=== PATIENT | female | born 1995 | race Caucasian/White ===

== ENCOUNTER 2016-12-17 20:10 | Emergency (ER) | payer BC ==
[~2016-12-17] VITALS: Ht 162.6 cm; Wt 87.7 kg
[~2016-12-17 20:10] MED LIST: PRENATAL 19 CH1 EACH PO; ZYRTEC 10MG10 MG PO
[2016-12-17 20:15] VITALS: TEMP 98.2
[2016-12-17] MEDS ORDERED: B-121000 MCG PO (20:17)
[2016-12-17] MEDS ORDERED: FOLIC ACID 11 MG/TA1 PO (20:17)
[2016-12-17] MEDS ORDERED: PRENATAL PO (20:17)
[2016-12-17 22:50] LABS: INFLUENZA B NEGATIVE
[2016-12-17 23:00] LABS: BASO % 0.3 % (0.0-2.0); EOS # 0.3 (0.0-0.7); EOS % 1.9 % (0-4.0); GRAN # 9.5 (1.4-6.5); GRAN % 71.7 % (42.2-75.2); HEMATOCRIT 41.2 % (35.0-45.0); HEMOGLOBIN 14.6 g/dl (12.0-15.0); LYMPH % 22.5 % (20.0-51.0); MEAN CELL VOLUME 83 fl (80.0-95.0); MEAN CORPUSCULAR HEMOGLOBIN 29 pg (26.0-32.0); MEAN CORPUSCULAR HGB CONC 35 g/dl (33.0-37.0); MEAN PLATELET VOLUME 9.5 fl (7.4-10.4); MONO # 0.4 (0.1-0.6); MONO % 3.2 % (1.7-9.3); PLATELET COUNT 266 K/mm3 (130-400); RED BLOOD COUNT 4.98 M/mm3 (4.10-5.30); REDCELL DISTRIBUTION WIDTH-CV 13.5 % (11.5-14.5); WHITE BLOOD COUNT 13.2 K/mm3 (4.8-10.8)
[2016-12-17 23:13] LABS: ADJUSTED CALCIUM 9.6 mg/dL (8.4-10.2); ALBUMIN 4.2 gm/dL (3.5-5.0); BILIRUBIN,TOTAL 0.7 mg/dL (0.0-1.0); CALCIUM 9.8 mg/dL (8.4-10.2); CREATININE, serum 0.67 mg/dL (0.52-1.25); POTASSIUM 3.6 mmol/L (3.4-5.0); TOTAL PROTEIN 7.7 gm/dL (6.4-8.2)
[2016-12-17 23:29] LABS: PH 5 (5-8); SQUAMOUS EPITHELIAL >50 /hpf; URINE APPEARANCE Cloudy; URINE BACTERIA Occasional /hpf; URINE BILIRUBIN Negative (NEGATIVE); URINE BLOOD Negative (NEGATIVE); URINE COLOR Amber; URINE GLUCOSE Negative (NEGATIVE); URINE KETONE Trace (NEGATIVE); URINE UROBILINOGEN Negative (NEGATIVE)
[2016-12-17 23:31] LABS: URINE RBC 0-2 /hpf
[2016-12-17] MEDS ORDERED: PHENERGAN 25 TA25 MG PO (23:31)
[2016-12-18 00:22] VITALS: BP 104/65; PULSE 102
== END 2016-12-18 00:22 | disposition home or self-care (01) ==
LOC: COL.ER 20:10
PROVIDERS: Nurse Practitioner
DX: O99.89 Other specified diseases and conditions complicating pregnancy, childbirth and the puerperium (principal); Z3A.14 14 weeks gestation of pregnancy; R11.2 Nausea with vomiting, unspecified; R09.89 Other specified symptoms and signs involving the circulatory and respiratory systems
CPT/HCPCS: J2550; J7030

== ENCOUNTER 2016-12-24 13:59 | Emergency (ER) | payer BC ==
[~2016-12-24] VITALS: Ht 162.6 cm; Wt 87.7 kg
[~2016-12-24 13:59] MED LIST changes: +B-121000 MCG PO; +FOLIC ACID 11 MG/TA1 PO; +PHENERGAN 25 TA25 MG PO; +PRENATAL PO
[2016-12-24 14:02] VITALS: TEMP 98.8
[2016-12-24] MEDS ORDERED: VITAMIN B-6100 MG (14:06)
[2016-12-24] MEDS ORDERED: UNISOM25 MG PO (14:07)
[2016-12-24 15:03] LABS: BASO % 0.2 % (0.0-2.0); EOS # 0.1 (0.0-0.7); EOS % 0.7 % (0-4.0); GRAN # 10.9 (1.4-6.5); GRAN % 91.7 % (42.2-75.2); HEMATOCRIT 41.3 % (35.0-45.0); HEMOGLOBIN 14.6 g/dl (12.0-15.0); LYMPH # 0.6 (1.2-3.4); LYMPH % 4.9 % (20.0-51.0); MEAN CELL VOLUME 83 fl (80.0-95.0); MEAN CORPUSCULAR HEMOGLOBIN 29 pg (26.0-32.0); MEAN CORPUSCULAR HGB CONC 35 g/dl (33.0-37.0); MONO # 0.3 (0.1-0.6); MONO % 2.1 % (1.7-9.3); PLATELET COUNT 232 K/mm3 (130-400); RED BLOOD COUNT 4.98 M/mm3 (4.10-5.30); REDCELL DISTRIBUTION WIDTH-CV 13.8 % (11.5-14.5); WHITE BLOOD COUNT 11.9 K/mm3 (4.8-10.8)
[2016-12-24 15:09] LABS: PH 9 (5-8); URINE APPEARANCE Hazy; URINE BACTERIA Rare /hpf; URINE BILIRUBIN Negative (NEGATIVE); URINE BLOOD Negative (NEGATIVE); URINE COLOR Yellow; URINE GLUCOSE Negative (NEGATIVE); URINE KETONE Trace (NEGATIVE); URINE UROBILINOGEN Negative (NEGATIVE)
[2016-12-24 15:17] LABS: ADJUSTED CALCIUM 9.5 mg/dL (8.4-10.2); ALBUMIN 4.1 gm/dL (3.5-5.0); BILIRUBIN,TOTAL 0.9 mg/dL (0.0-1.0); CALCIUM 9.6 mg/dL (8.4-10.2); CREATININE, serum 0.64 mg/dL (0.52-1.25); INFLUENZA B NEGATIVE; POTASSIUM 3.5 mmol/L (3.4-5.0); TOTAL PROTEIN 7.6 gm/dL (6.4-8.2)
[2016-12-24] MEDS ORDERED: REGLAN 10MG10 MG/TAB PO (15:38)
[2016-12-24 16:22] VITALS: BP 112/59; PULSE 116
== END 2016-12-24 16:23 | disposition home or self-care (01) ==
LOC: COL.ER 13:59
PROVIDERS: Nurse Practitioner
DX: O21.0 Mild hyperemesis gravidarum (principal); Z3A.15 15 weeks gestation of pregnancy
CPT/HCPCS: J2765; J7030

== ENCOUNTER 2017-03-18 08:07 | Outpatient (CLI) | payer BC, MEDICAID ==
[~2017-03-18 08:07] MED LIST changes: +REGLAN 10MG10 MG/TAB PO; +UNISOM25 MG PO; +VITAMIN B-6100 MG
[2017-03-18 08:11] VITALS: BP 120/76; PULSE 91; TEMP 97.8
== END 2017-03-18 08:30 | disposition home or self-care (01) ==
LOC: LDRO 08:07
DX: O36.8190 Decreased fetal movements, unspecified trimester, not applicable or unspecified (principal); Z3A.00 Weeks of gestation of pregnancy not specified

== ENCOUNTER 2017-05-15 00:13 | Outpatient (CLI) | payer BC ==
[~2017-05-15] VITALS: Ht 165.1 cm; Wt 96.4 kg
[2017-05-15 01:00] VITALS: BP 126/81; PULSE 96; TEMP 97.7
== END 2017-05-15 02:15 | disposition home or self-care (01) ==
LOC: LDRO 00:13
DX: O62.9 Abnormality of forces of labor, unspecified (principal); Z3A.35 35 weeks gestation of pregnancy

== ENCOUNTER 2017-05-16 18:24 | Outpatient (CLI) | payer BC ==
[~2017-05-16] VITALS: Ht 165.1 cm; Wt 96.4 kg
[2017-05-16 19:15] VITALS: BP 124/80; PULSE 101
[2017-05-16 19:20] VITALS: BP 131/76; PULSE 111; TEMP 98.9
[2017-05-16 19:45] VITALS: BP 122/78; PULSE 92
== END 2017-05-16 19:55 | disposition home or self-care (01) ==
LOC: LDRO 18:24
DX: Z34.83 Encounter for supervision of other normal pregnancy, third trimester (principal); Z3A.35 35 weeks gestation of pregnancy

== ENCOUNTER 2017-06-06 21:11 | Outpatient (CLI) | payer BC ==
[~2017-06-06] VITALS: Ht 162.6 cm; Wt 100.0 kg
[2017-06-06 21:35] VITALS: BP 132/83; PULSE 88; TEMP 98
[2017-06-06 21:41] VITALS: BP 132/83; PULSE 88; TEMP 98
== END 2017-06-06 22:30 | disposition home or self-care (01) ==
LOC: LDRO 21:11
DX: O62.2 Other uterine inertia (principal); Z3A.38 38 weeks gestation of pregnancy

== ENCOUNTER 2017-06-14 06:44 | Inpatient (IN) | payer BC ==
[~2017-06-14] VITALS: Ht 165.1 cm; Wt 99.1 kg
[2017-06-14] VITALS (47 sets, daily range): BP systolic 106–156; BP diastolic 57–97; PULSE 63–112; TEMP 97.4–98.2
[2017-06-14 07:57] LABS: BASO % 0.3 % (0.0-2.0); EOS # 0.2 (0.0-0.7); EOS % 2.2 % (0-4.0); GRAN # 7.1 (1.4-6.5); HEMATOCRIT 37.4 % (35.0-45.0); HEMOGLOBIN 12.8 g/dl (12.0-15.0); LYMPH # 2.8 (1.2-3.4); LYMPH % 25.8 % (20.0-51.0); MEAN CELL VOLUME 81 fl (80.0-95.0); MEAN CORPUSCULAR HEMOGLOBIN 28 pg (26.0-32.0); MEAN CORPUSCULAR HGB CONC 34 g/dl (33.0-37.0); MONO # 0.5 (0.1-0.6); PLATELET COUNT 280 K/mm3 (130-400); REDCELL DISTRIBUTION WIDTH-CV 14.1 % (11.5-14.5); WHITE BLOOD COUNT 10.7 K/mm3 (4.8-10.8)
[2017-06-14] MEDS ORDERED: MOTRIN 800800 MG/TAB PO (13:46)
[2017-06-14] MEDS ORDERED: PERCOCET 325 MG1 TA2 PO (13:46)
[2017-06-15 01:00] VITALS: BP 125/68; PULSE 100; TEMP 97.5
[2017-06-15 08:35] VITALS: BP 125/66; PULSE 84; TEMP 97.3
[2017-06-15 16:13] VITALS: BP 124/78; PULSE 72; TEMP 98.2
[2017-06-15 20:30] VITALS: BP 127/71; PULSE 97; TEMP 98.2
[2017-06-16 07:30] VITALS: BP 136/71; PULSE 91; TEMP 97.5
[2017-06-16 16:00] VITALS: BP 123/61; PULSE 108; TEMP 97.7
== END 2017-06-16 17:15 | disposition home or self-care (01) | DRG 775 ==
LOC: LDR 06:51 → OB 06:51
PROVIDERS: Obstetrics & Gynecology
PROC: 10E0XZZ Delivery of Products of Conception, External Approach (ICD-10-PCS; principal; 2017-06-14)
PROC: 0HQ9XZZ Repair Perineum Skin, External Approach (ICD-10-PCS; 2017-06-14)
DX: O99.824 Streptococcus B carrier state complicating childbirth (principal); O70.0 First degree perineal laceration during delivery; Z3A.39 39 weeks gestation of pregnancy; Z37.0 Single live birth
CPT/HCPCS: J2210; J2540; J2590; J7120